=== PATIENT | female | born 1995 | race Asian ===

== ENCOUNTER 2019-07-29 20:03 | Emergency (ER) | payer SELFPAY ==
[~2019-07-29] VITALS: Ht 157.5 cm; Wt 89.0 kg
[~2019-07-29 20:03] MED LIST: DOCU-131 PO; IBUP-1222 PO; OXYC-302 PO
[2019-07-29] MEDS ORDERED: MAALOX/HYOSCYAMINE/LIDOCAINE 45 ML BTL ONE (20:24)
--- NOTE | 2019-07-29 20:27 | NUR ---
PT HERE WITH C/O ABDOMINAL PAIN, STATED STARTED AT 1300 AFTER EATING SOUP. PT ALSO STATES SHE WAS HERE LAST NIGHT FOR THE SAME THING. PT STATES SHE WAS TOLD SHE HAS "BAD ACID REFLEX AND AN ULCER, THEY GAVE ME ZOFRAN AND PEPCID BUT IT ISN'T DOING ANYTHING." PT DENIES MEDICAL HX AND DAILY MEDICATIONS. PT DRESSED IN GOWN AND ATTACHED TO MONITOR, VSS, CALL LIGHT WITHIN REACH, SIDERAIL X [address], TO BEDSIDE. ROOM AIR, NAD.
[2019-07-29] MEDS ORDERED: MAALOX/HYOSCYAMINE/LIDOCAINE 45 ML BTL PO ONE (20:30)
--- NOTE | 2019-07-29 20:56 | NUR ---
RECEIVED REPORT FROM JAIDEN RAINES AND ASSUMED PT CARE
[2019-07-29 21:22] VITALS: BP 132/69
== END 2019-07-29 21:26 | disposition home or self-care (01) ==
LOC: ED 21:06
DX: K29.00 Acute gastritis without bleeding (principal)
CPT/HCPCS: 74021; 99283